=== PATIENT | female | born 1950 | race Caucasian/White ===

== ENCOUNTER 2017-09-06 12:05 | Inpatient (IN) | payer OTHER ==
[~2017-09-06] VITALS: Ht 165.1 cm; Wt 77.4 kg
[2017-09-06 12:56] LABS: Basophils # (auto) 0.1 uL; Eosinophils # (auto) 0.1 uL; Eosinophils % (auto) 1.9 % (0.0-7.0); Hematocrit 31.7 % (36.0-46.0); Hemoglobin 10.5 g/dL (12.2-16.2); Lymphocytes # (auto) 1.1 uL; Lymphocytes % (auto) 16.6 % (10.0-50.0); Mean Corpuscular Hemoglobin 30.1 pg (28.0-32.0); Mean Corpuscular Volume 91.4 fL (80.0-100.0); Monocytes # (auto) 0.5 uL; Monocytes % (auto) 7.5 % (0.0-12.0); Neutrophils # (auto) 4.8 uL; Platelet Count (auto) 228 10^3/uL (140-450); Red Blood Cells 3.47 10^6/uL (4.0-5.20); Red Cell Distribution Width 14.5 % (11.8-14.3); White Blood Cell 6.6 10^3/uL (4.4-10.8)
[2017-09-06 13:17] LABS: Alanine Aminotransferase 34 U/L (13-56); Albumin 3.9 g/dL (3.4-5.0); Anion Gap 7 (5-15); Aspartate Aminotransferase 22 U/L (15-37); BUN/Creatinine Ratio 26.7; Blood Urea Nitrogen 40 mg/dL (7-18); Calcium 9.3 mg/dL (8.5-10.1); Carbon Dioxide 24 mmol/L (21-32); Chloride 112 mmol/L (98-107); GFR African American 44 mL/min; GFR Non-African American 37 mL/min; Glucose 132 mg/dL (74-106); Potassium 4.3 mmol/L (3.5-5.1); Sodium 143 mmol/L (136-145)
[2017-09-06 13:22] LABS: Alkaline Phosphatase 67 U/L (45-117); Bilirubin, Total 0.9 mg/dL (0.2-1.0); Total Protein 7.1 g/dL (6.4-8.2)
[2017-09-06] MEDS ORDERED: ISOS60TA24 PO (14:52)
[2017-09-06] MEDS ORDERED: AMLO5TAB2 PO (14:52)
[2017-09-06] MEDS ORDERED: LOSA25TA9 PO (14:52)
[2017-09-06] MEDS ORDERED: FURO20TA3 PO (14:52)
[2017-09-06] MEDS ORDERED: IBUP800T24 PO (14:52)
[2017-09-06] MEDS ORDERED: ATOR20TA50 PO (14:52)
[2017-09-06] MEDS ORDERED: METO-159 PO (14:52)
[2017-09-06] MEDS ORDERED: HYDR50TA15 PO (14:52)
[2017-09-06] MEDS ORDERED: FERR-20 PO (14:52)
[2017-09-06] MEDS ORDERED: LEVO25TA6 PO (14:52)
[2017-09-06] MEDS ORDERED: DEXTROSE (50%) 50ML SYRG IV PRN (15:00)
[2017-09-06] MEDS ORDERED: ACETAMINOPHEN 325 MG TAB PO PRN (15:00)
[2017-09-06] MEDS ORDERED: DOCUSATE SOD 100 MG CAP PO PRN (15:00)
[2017-09-06] MEDS ORDERED: ONDANSETRON HCL 4 MG/2 ML VIAL IV PRN (15:00)
[2017-09-06] MEDS ORDERED: TEMAZEPAM 15 MG CAP PO PRN (15:00)
[2017-09-06] MEDS ORDERED: MORPHINE SULFATE 4 MG/ML SYR/VIAL IV PRN ×2 (15:00)
[2017-09-06] MEDS ORDERED: POTASSIUM CHL 10 Meq TABLET PO ONE (15:00)
[2017-09-06] MEDS ORDERED: HYDROcodone-ACET 5/325MG TAB PO PRN (15:00)
[2017-09-06] MEDS ORDERED: FUROSEMIDE 40 MG/4 ML VIAL IV ONE (15:00)
[2017-09-06] MEDS ORDERED: NITROGLYCERIN 0.4 MG SL TAB SL PRN (15:00)
[2017-09-06] MEDS ORDERED: cloNIDine HCL 0.1 MG TAB PO PRN (15:15)
[2017-09-06] MEDS ORDERED: IBUPROFEN 800 MG TAB PO PRN (15:15)
[2017-09-06] MEDS ORDERED: ASPirin-EC 81 mg tab PO ONE (15:30)
[2017-09-06 15:59] LABS: Urine Bacteria FEW /hpf (None Seen); Urine Blood Negative /uL (Negative); Urine Specific Gravity 1.009 (1.001-1.035); Urine WBC 9 /hpf (0 - 5)
[2017-09-06] MEDS: InsuLIN REG 1unit/0.01ml Soln (100units/ml) SC SCH ×2 (17:00→22:23)
[2017-09-06] MEDS: ACCU-CHEK COMFORT CURVE STRIP VI SCH ×2 (17:26→22:23)
[2017-09-06] MEDS: FERROUS SULFATE 325 MG TAB PO SCH (18:18)
[2017-09-06] MEDS: FUROSEMIDE 20 MG TAB PO SCH (18:19)
[2017-09-06] MEDS: INSULIN NPH Isophane (HUMAN) 1unit/0.01ml Susp(100units/ml) SC SCH (18:19)
[2017-09-06 21:10] VITALS: BP 139/69
[2017-09-06] MEDS: METOPROLOL TARTRATE 50 MG TAB PO SCH (21:56)
[2017-09-06] MEDS ORDERED: ATORVASTATIN 20 MG TAB PO SCH (22:00)
[2017-09-06] MEDS: hydrALAZINE HCL 25 MG TAB PO SCH (22:21)
[2017-09-06] MEDS: CALCIUM CARB 500 MG CHEW TAB PO SCH (22:21)
[2017-09-06] MEDS: FAMOTIDINE 20 MG TAB PO SCH (22:21)
[2017-09-06] MEDS: ASCORBIC ACID 500 MG TAB PO SCH (22:22)
[2017-09-06] MEDS: SODIUM CHLOR 0.9% PF (SALINE LOCK) 10ML VIAL IV SCH (22:23)
[2017-09-07 00:36] VITALS: BP 139/69
[2017-09-07 05:00] VITALS: BP 108/50
[2017-09-07] MEDS: FUROSEMIDE 20 MG TAB PO SCH (06:13)
[2017-09-07] MEDS: SODIUM CHLOR 0.9% PF (SALINE LOCK) 10ML VIAL IV SCH ×2 (06:13→13:21)
[2017-09-07] MEDS: InsuLIN REG 1unit/0.01ml Soln (100units/ml) SC SCH ×2 (06:25→11:30)
[2017-09-07] MEDS: INSULIN NPH Isophane (HUMAN) 1unit/0.01ml Susp(100units/ml) SC SCH (06:26)
[2017-09-07] MEDS: ACCU-CHEK COMFORT CURVE STRIP VI SCH ×2 (06:26→11:30)
[2017-09-07] MEDS ORDERED: LEVOTHYROXINE SODIUM 25 MCG TAB PO SCH (07:00)
[2017-09-07 07:43] LABS: Basophils # (auto) 0.1 uL; Basophils % (auto) 1.1 % (0.0-2.0); Eosinophils # (auto) 0.2 uL; Eosinophils % (auto) 2.5 % (0.0-7.0); Hematocrit 29.9 % (36.0-46.0); Lymphocytes # (auto) 1.4 uL; Lymphocytes % (auto) 22.8 % (10.0-50.0); Mean Corpuscular Hemoglobin 30.4 pg (28.0-32.0); Mean Corpuscular Hgb Conc. 33.4 g/dL (32.0-36.0); Monocytes # (auto) 0.5 uL; Monocytes % (auto) 8.5 % (0.0-12.0); Neutrophils # (auto) 3.9 uL; Neutrophils % (auto) 65.1 % (37.0-80.0); Nucleated Red Blood Cells % 0.1 %; Platelet Count (auto) 209 10^3/uL (140-450); Red Blood Cells 3.29 10^6/uL (4.0-5.20); Red Cell Distribution Width 14.6 % (11.8-14.3)
[2017-09-07 07:58] LABS: Alanine Aminotransferase 29 U/L (13-56); Albumin 3.5 g/dL (3.4-5.0); Alkaline Phosphatase 64 U/L (45-117); Anion Gap 9 (5-15); Aspartate Aminotransferase 21 U/L (15-37); BUN/Creatinine Ratio 22.3; Blood Urea Nitrogen 37 mg/dL (7-18); Calcium 8.8 mg/dL (8.5-10.1); Carbon Dioxide 26 mmol/L (21-32); Chloride 110 mmol/L (98-107); GFR African American 39 mL/min; GFR Non-African American 33 mL/min; Glucose 99 mg/dL (74-106); Potassium 3.9 mmol/L (3.5-5.1); Sodium 145 mmol/L (136-145); Total Protein 6.7 g/dL (6.4-8.2)
[2017-09-07 08:00] VITALS: BP 145/57
[2017-09-07] MEDS ORDERED: FUROSEMIDE 40 MG/4 ML VIAL IV ONE (08:45)
[2017-09-07 09:00] VITALS: BP 145/57
[2017-09-07] MEDS: METOPROLOL TARTRATE 50 MG TAB PO SCH (09:04)
[2017-09-07] MEDS: CALCIUM CARB 500 MG CHEW TAB PO SCH (09:04)
[2017-09-07] MEDS: ASCORBIC ACID 500 MG TAB PO SCH (09:04)
[2017-09-07] MEDS: FAMOTIDINE 20 MG TAB PO SCH (09:04)
[2017-09-07] MEDS: FERROUS SULFATE 325 MG TAB PO SCH (09:05)
[2017-09-07] MEDS: hydrALAZINE HCL 25 MG TAB PO SCH (09:10)
[2017-09-07] MEDS ORDERED: amLODIPine BESYLATE 5 MG TAB PO SCH (10:00)
[2017-09-07] MEDS ORDERED: MULTIPLE VITAMIN TAB PO SCH (10:00)
[2017-09-07] MEDS ORDERED: POTASSIUM CHL 10 Meq TABLET PO SCH (10:00)
[2017-09-07] MEDS ORDERED: LOSARTAN POTASSIUM 25 MG TAB PO SCH (10:00)
[2017-09-07] MEDS ORDERED: ISOSORBIDE MONONITRATE 60 MG TAB PO SCH (10:00)
[2017-09-07 13:19] VITALS: BP 131/71
== END 2017-09-07 13:30 | disposition home or self-care (01) | DRG 291 ==
LOC: ER 12:05 → TELE 12:06 → TELE-CENTR 21:00
PROVIDERS: ADMIT Internal Medicine; ATTEND Internal Medicine Geriatric Medicine
DX: I13.0 Hypertensive heart and chronic kidney disease with heart failure and stage 1 through stage 4 chronic kidney disease, or unspecified chronic kidney disease (principal); I50.43 Acute on chronic combined systolic (congestive) and diastolic (congestive) heart failure; E11.21 Type 2 diabetes mellitus with diabetic nephropathy; N18.4 Chronic kidney disease, stage 4 (severe); E11.22 Type 2 diabetes mellitus with diabetic chronic kidney disease; D63.8 Anemia in other chronic diseases classified elsewhere; E03.9 Hypothyroidism, unspecified; E78.5 Hyperlipidemia, unspecified; I25.10 Atherosclerotic heart disease of native coronary artery without angina pectoris; I25.2 Old myocardial infarction; Z79.4 Long term (current) use of insulin; Z95.1 Presence of aortocoronary bypass graft; Z83.3 Family history of diabetes mellitus; Z90.710 Acquired absence of both cervix and uterus; Z79.899 Other long term (current) drug therapy; Z98.49 Cataract extraction status, unspecified eye; Z89.421 Acquired absence of other right toe(s)
CPT/HCPCS: 36415; 71046; 78582; 80053; 81001; 82962; 83036; 83735; 83880; 84443; 84484; 85025; 85379; 93005; 93306; 93970; 96374; J1815